=== PATIENT | female | born 1995 | race Caucasian/White ===

== ENCOUNTER 2018-01-22 18:03 | Emergency (ER) | payer BC ==
[2018-01-22 19:18] VITALS: BP 124/76
--- NOTE | 2018-01-22 20:04 | UC ---
Abdominal Pain Female HPI - HPI Summary HPI Summary: 22-year-old female comes into clinic today with a chief complaint of left lower quadrant abdominal pain. Pain started this morning at approximately 6 out of 10. Sometimes she feels lightheaded when she stands up. No fevers or chills. Last period was about a week and a half ago. She is on metronidazole cream for bacterial vaginitis. She had a recent pelvic exam at [facility]. She does have a history of ovarian cyst and she's had laparoscopic surgery for the ovarian cysts. She's had some constipation issues over the last 1 month. She' s been having persistent lower abdominal discomfort on and off for the last several weeks. - History of Current Complaint Chief Complaint: UCAbdominalPain Stated Complaint: ABD PAIN Time Seen by Provider: 01/22/18 19:49 Hx Last Menstrual Period: 01/03/18 Pain Intensity: 7 Allergies/Adverse Reactions: Allergies Allergy/AdvReac Type Severity Reaction Status Date / Time No Known Allergies Allergy Verified 01/22/18 19:18 PMH/Surg Hx/FS Hx/Imm Hx Other History Of: Negative For: Anticoagulant Therapy - Surgical History Surgical History: Yes Surgery Procedure, Year, and Place: drain ovarian cyst 2010 - Family History Known Family History: Positive: None - Social History Alcohol Use: Daily Substance Use Type: None Smoking Status (MU): Never Smoked Tobacco Review of Systems Constitutional: Negative Skin: Negative Eyes: Negative ENT: Negative Respiratory: Negative Cardiovascular: Negative Gastrointestinal: Abdominal Pain Genitourinary: Negative Motor: Negative Neurovascular: Negative Musculoskeletal: Negative Neurological: Negative Psychological: Negative Is Patient Immunocompromised?: No All Other Systems Reviewed And Are Negative: Yes Physical Exam Triage Information Reviewed: Yes Appearance: Ill-Appearing - MILD, Pain Distress - MILD Vital Signs: Initial Vital Signs Temp 97.9 F 01/22/18 19:12 Pulse 59 01/22/18 19:12 Resp 18 01/22/18 19:12 BP 124/76 01/22/18 19:12 Pulse Ox 100 01/22/18 19:12 Vital Signs Reviewed: Yes Eye Exam: Normal Eyes: Positive: Conjunctiva Clear ENT Exam: Normal Neck exam: Normal Neck: Positive: Supple Respiratory Exam: Normal Respiratory: Positive: Lungs clear, Normal breath sounds, No respiratory distress Cardiovascular Exam: Normal Cardiovascular: Positive: RRR Abdomen Description: Positive: CVA Tenderness (L), Guarding, Other: - Tender to palpation left lower quadrant Bowel Sounds: Positive: Present Musculoskeletal Exam: Normal Musculoskeletal: Positive: Strength Intact, ROM Intact Neurological Exam: Normal Neurological: Positive: Alert, Muscle Tone Normal Psychological Exam: Normal Psychological: Positive: Age Appropriate Behavior Skin Exam: Normal Abd Pain Female Course/Dx - Course Course Of Treatment: We discussed the different possibilities for her left lower quadrant abdominal pain. I recommended she go directly to the emergency department for further evaluation of this condition. Her partner is going to give her a ride. - Differential Dx/Diagnosis Provider Diagnoses: LLQ ABDOMINAL PAIN Discharge - Sign-Out/Discharge Documenting (check all that apply): Patient Departure All imaging exams completed and their final reports reviewed: No Studies - Discharge Plan Condition: Stable Disposition: HOME-RECOMMEND TO ED Patient Education Materials: Abdominal Pain (ED) Referrals: Jing Mcdaniel MD [Primary Care Provider] - Additional Instructions: GO DIRECTLY TO THE EMERGENCY DEPARTMENT FOR FURTHER EVALUATION. - Billing Disposition and Condition Condition: STABLE Disposition: Home-Recommend to ED
== END 2018-01-22 20:08 | disposition home health service (06) ==
LOC: UCEAST 18:03
DX: R10.32 Left lower quadrant pain (principal)
CPT/HCPCS: 81003; 84702; 99212; G0463

== ENCOUNTER 2018-01-22 20:24 | Emergency (ER) | payer BC ==
[2018-01-22 20:30] VITALS: BP 130/76
== END 2018-01-22 20:42 | disposition left against medical advice (07) ==
LOC: ED 20:24
DX: R10.9 Unspecified abdominal pain (principal); Z53.21 Procedure and treatment not carried out due to patient leaving prior to being seen by health care provider

== ENCOUNTER 2018-01-23 15:48 | Emergency (ER) | payer BC ==
[2018-01-23 15:54] VITALS: BP 120/72
[2018-01-23 18:30] LABS: ABS Basophils 0 10^3/ul (0-0.2); ABS Eosinophils 0.1 10^3/ul (0-0.6); ABS Lymphocytes 2.1 10^3/ul (1.0-4.8); ABS Monocytes 0.5 10^3/ul (0-0.8); ABS Neutrophils 3.8 10^3/ul (1.5-7.7); ABS Nucleated RBC 0 10^3/ul; Eosinophil % 0.8 % (0-6); Hematocrit 40 % (35-47); Hemoglobin 13.6 g/dl (12.0-16.0); Lymphocyte % 32.8 % (25-47); Mean Corpuscular HGB Conc 34 g/dl (31-36); Mean Corpuscular Hemoglobin 30 pg (27-31); Mean Corpuscular Volume 90 fL (80-97); Mean Platelet Volume 7.5 um3 (7.4-10.4); Nucleated Red Blood Cells % 0.1; Platelet Count 151 10^3/ul (150-450); Red Cell Distribution Width 12 % (10.5-15); White Blood Count 6.5 10^3/ul (3.5-10.8)
[2018-01-23 18:58] LABS: EGFR Non-African American 86.8 (>60)
[2018-01-23 19:22] LABS: Urine Appearance Clear; Urine Blood Negative (Negative); Urine Color Yellow; Urine Ketones Negative (Negative); Urine Protein Negative (Negative); Urine Specific Gravity 1.013 (1.010-1.030); Urine Urobilinogen Negative (Negative)
--- NOTE | 2018-01-23 19:28 | RAD ---
EXAM: US Pelvis, Transvaginal CLINICAL HISTORY: 22 years old, female; Pain; Pelvic pain; Prior surgery; Surgery date: 6+ months; Surgery type: Left ov. Cyst removed; Patient HX: Llq pain x 3 1/2 wks; Additional info: Llq pain, h/o ovarian cysts TECHNIQUE: Real-time transvaginal pelvic ultrasound (complete) with image documentation. Transvaginal imaging was used for better evaluation of the endometrium and adnexa. COMPARISON: PELVIC US PELVIC COMPLETE 06/13/2011 12:58 PM FINDINGS: Uterus/cervix: Anteverted anteflexed. Measures 6.9 x 5.4 x 2.9 cm (56 cc). Cystic mass within the left cornua which contains layering debris and shows no internal vascularity measuring 2.1 x 2.0 x 1.6 cm. Early proliferative phase endometrium measuring 0.2 cm. Right ovary: Right ovary measures 3.2 x 1.8 x 1.1 cm (3.2 cc). Normal size and echogenicity with no masses. Normal follicles. Normal arterial and venous waveforms. Left ovary: Left ovary measures 3.4 x 2.1 x 1.1 cm (4.2 cc). Normal size and echogenicity with no masses. Normal follicles. Normal arterial and venous waveforms. Free fluid: No free fluid. Bladder: Empty bladder which cannot be evaluated with this probe. IMPRESSION: Left cornual mass highly concerning for a interstitial ectopic . To contact [facility] with a general question: [facility] - [phone] For direct physician to physician contact: Physician Hotline - [phone] [facility] ([facility] ID #[id number])
--- NOTE | 2018-01-23 21:35 | ED ---
Abdominal Pain/Female - HPI Summary HPI Summary: Patient complains of left lower quadrant abdominal pain intermittently for the past 3 weeks. Describes pain as intermittent, lasting hours each day, rated at worst 8 out of 10, relieved with heat and ibuprofen. States has history of ovarian cysts with prior laparoscopic surgery on left side for for large ovarian cyst. LMP 1.5 weeks ago. Recently started on the OCP 1 week ago. Currently being treated for BV. Denies fever, cough, sore throat, CP, SOB, N/V/ D, change in urine or vaginal symptoms. Medical history is none. - History of Current Complaint Chief Complaint: EDAbdPain Stated Complaint: ABD PAIN Time Seen by Provider: 01/23/18 18:12 Hx Obtained From: Patient Hx Last Menstrual Period: 01/03/18 Onset/Duration: Gradual Onset Timing: Hours Severity Initially: Moderate Severity Currently: Moderate Pain Intensity: 5 Pain Scale Used: 0-10 Numeric Location: Discrete At: LLQ Radiates: No Alleviating Factor(s): OTC Analgesics, Other: Associated Signs and Symptoms: Positive: Negative Allergies/Adverse Reactions: Allergies Allergy/AdvReac Type Severity Reaction Status Date / Time No Known Allergies Allergy Verified 01/22/18 19:18 PMH/Surg Hx/FS Hx/Imm Hx Endocrine/Hematology History: Denies: Hx Anticoagulant Therapy, Hx Diabetes, Hx Thyroid Disease Cardiovascular History: Denies: Hx Cardiac Arrest, Hx Hypertension, Hx Pacemaker/ICD, Hx Peripheral Vascular Disease Respiratory History: Denies: Hx Asthma, Hx Chronic Obstructive Pulmonary Disease (COPD) GI History: Denies: Hx Ulcer History: Denies: Hx Dialysis, Hx Renal Disease Musculoskeletal History: Reports: Other Musculoskeletal History - Right Collar Bone_ Fracture a Month Ago. Still on -Limited Use. Denies: Hx Arthritis, Hx Rheumatoid Arthritis, Hx Osteoporosis Sensory History: Denies: Hx Cataracts, Hx Contacts or Glasses, Hx Glaucoma Opthamlomology History: Denies: Hx Cataracts, Hx Contacts or Glasses, Hx Glaucoma Neurological History: Denies: Hx Dementia, Hx Seizures Psychiatric History: Denies: Hx Anxiety, Hx Depression, Hx Substance Abuse - Surgical History Surgery Procedure, Year, and Place: drain ovarian cyst 2010 - Immunization History Date of Influenza Vaccine: N Infectious Disease History: No Infectious Disease History: Denies: Hx Clostridium Difficile, Hx Hepatitis, Hx Human Immunodeficiency Virus (HIV), Hx of Known/Suspected MRSA, Hx Tuberculosis, Hx Known/Suspected VRE , Hx Known/Suspected VRSA, History Other Infectious Disease, Traveled Outside the [place] in Last 30 Days - Family History Known Family History: Positive: None - Social History Alcohol Use: Daily Substance Use Type: Reports: None Smoking Status (MU): Never Smoked Tobacco Review of Systems Constitutional: Negative Eyes: Negative ENT: Negative Cardiovascular: Negative Respiratory: Negative Positive: Abdominal Pain Genitourinary: Negative Musculoskeletal: Negative Skin: Negative Neurological: Negative Psychological: Normal All Other Systems Reviewed And Are Negative: Yes Physical Exam - Summary Physical Exam Summary: Tenderness to palpation left lower quadrant. Abdominal exam otherwise unremarkable. Triage Information Reviewed: Yes Vital Signs On Initial Exam: Initial Vitals Temp Pulse Resp BP Pulse Ox 97.6 F 66 16 120/72 100 01/23/18 15:52 01/23/18 15:52 01/23/18 15:52 01/23/18 15:52 01/23/18 15:52 Vital Signs Reviewed: Yes Appearance: Positive: Well-Appearing Skin: Positive: Warm Head/Face: Positive: Normal Head/Face Inspection Eyes: Positive: Normal Neck: Positive: Supple Respiratory/Lung Sounds: Positive: Clear to Auscultation Cardiovascular: Positive: Normal Abdomen Description: Positive: Other: Musculoskeletal: Positive: Normal Neurological: Positive: Normal Psychiatric: Positive: Normal AVPU Assessment: Alert - [place] Coma Scale Best Eye Response: 4 - Spontaneous Best Motor Response: 6 - Obeys Commands Best Verbal Response: 5 - Oriented Coma Scale Total: 15 Diagnostics - Vital Signs Vital Signs Temp Pulse Resp BP Pulse Ox 01/23/18 15:52 97.6 F 66 16 120/72 100 - Laboratory Lab Results: Lab Results 01/23/18 01/23/18 01/23/18 Range/Units 18:05 18:05 19:15 WBC 6.5 (3.5-10.8) 10^3/ul RBC 4.50 (4.00-5.40) 10^6/ul Hgb 13.6 (12.0-16.0) g/dl Hct 40 (35-47) % MCV 90 (80-97) fL MCH 30 (27-31) pg MCHC 34 (31-36) g/dl RDW 12 (10.5-15) % Plt Count 151 (150-450) 10^3/ul MPV 7.5 (7.4-10.4) um3 Neut % (Auto) 58.7 (38-83) % Lymph % (Auto) 32.8 (25-47) % [place] % (Auto) 7.5 H (0-7) % Eos % (Auto) 0.8 (0-6) % Baso % (Auto) 0.2 (0-2) % Absolute Neuts (auto) 3.8 (1.5-7.7) 10^3/ul Absolute Lymphs (auto) 2.1 (1.0-4.8) 10^3/ul Absolute Monos (auto) 0.5 (0-0.8) 10^3/ul Absolute Eos (auto) 0.1 (0-0.6) 10^3/ul Absolute Basos (auto) 0 (0-0.2) 10^3/ul Absolute Nucleated RBC 0 10^3/ul Nucleated RBC % 0.1 Sodium 139 (135-145) mmol/L Potassium 3.5 (3.5-5.0) mmol/L Chloride 106 (101-111) mmol/L Carbon Dioxide 29 (22-32) mmol/L Anion Gap 4 (2-11) mmol/L BUN 13 (6-24) mg/dL Creatinine 0.83 (0.51-0.95) mg/dL Est GFR ( Amer) 105.0 (>60) Est GFR (Non-Af Amer) 86.8 (>60) BUN/Creatinine Ratio 15.7 (8-20) Glucose 91 (70-100) mg/dL Calcium 9.2 (8.6-10.3) mg/dL Total Bilirubin 0.40 (0.2-1.0) mg/dL AST 18 (13-39) U/L ALT 13 (7-52) U/L Alkaline Phosphatase 32 L (34-104) U/L Total Protein 6.8 (6.4-8.9) g/dL Albumin 4.4 (3.2-5.2) g/dL Globulin 2.4 (2-4) g/dL Albumin/Globulin Ratio 1.8 (1-3) Beta HCG, Quant < 0.60 mIU/mL Urine Color Yellow Urine Appearance Clear Urine pH 7.0 (5-9) Ur Specific [place] 1.013 (1.010-1.030) Urine Protein Negative (Negative) Urine Ketones Negative (Negative) Urine Blood Negative (Negative) Urine Nitrate Negative (Negative) Urine Bilirubin Negative (Negative) Urine Urobilinogen Negative (Negative) Ur Leukocyte Esterase Negative (Negative) Urine Glucose Negative (Negative) Urine Ascorbic Acid * A (Negative) Result Diagrams: 01/23/18 18:05 01/23/18 18:05 Lab Statement: Any lab studies that have been ordered have been reviewed, and results considered in the medical decision making process. Abdominal Pain Fem Course/Dx - Course Course Of Treatment: Patient complains of left lower quadrant abdominal pain intermittently for the past 3 weeks. Describes pain as intermittent, lasting hours each day, rated at worst 8 out of 10, relieved with heat and ibuprofen. States has history of ovarian cysts with prior laparoscopic surgery on left side for for large ovarian cyst. LMP 1.5 weeks ago. Recently started on the OCP 1 week ago. Currently being treated for BV. Denies fever, cough, sore throat, CP, SOB, N/V/D, change in urine or vaginal symptoms. Medical history is none. Physical exam: Tenderness to palpation left lower quadrant. Abdominal exam otherwise unremarkable. Vital signs within normal limits. Labs unremarkable. Transvaginal ultrasound read possible ectopic. Negative hCG however. Discussed patient with Dr. Cornejo consumer affairs specialist for gynecology who stated this could not be ectopic. Vital signs within normal limits. Ibuprofen for pain. Patient will follow up with HEALTH INFORMATION MANAGER. - Diagnoses Provider Diagnoses: Abdominal pain Discharge - Sign-Out/Discharge Documenting (check all that apply): Patient Departure - Discharge Plan Condition: Stable Disposition: HOME Prescriptions: HYDROcodone/ACETAMIN 5-325 MG* [[place] 5-325 TAB*] 1 tab PO BID 3 Days #6 tab MDD 2 tabs Patient Education Materials: Abdominal Pain (ED) Referrals: Jing Mcdaniel MD [Primary Care Provider] - Jesus Alberto Cornejo MD [Medical Doctor] - Additional Instructions: Take ibuprofen 600mg up to three times a day for pain. Follow up with HEALTH INFORMATION MANAGER. Return to the ED for any new or worsening symptoms - Billing Disposition and Condition Condition: STABLE Disposition: Home
[2018-01-23] MEDS ORDERED: Ibuprofen TAB* 600 MG PO ONE (21:36)
[2018-01-23] MEDS ORDERED: HYDROcodone/ACETAMIN 5-325 MG* 1 TAB PO ONE (21:46)
== END 2018-01-23 21:53 | disposition home or self-care (01) ==
LOC: ED 15:48
DX: R10.32 Left lower quadrant pain (principal); Z79.899 Other long term (current) drug therapy
CPT/HCPCS: 36415; 76830; 80053; 81003; 84702; 85025; 99282; A9270-GY

== ENCOUNTER 2021-04-20 12:19 | Inpatient (IN) ==
[2021-04-20 13:28] LABS: ABS Lymphocytes 1.3 10^3/ul (1.0-4.8); ABS Monocytes 0.3 10^3/ul (0-0.8); ABS Neutrophils 4.2 10^3/ul (1.5-7.7); Eosinophil % 0.6 %; Hematocrit 44 % (35-47); Hemoglobin 14.8 g/dL (12.0-16.0); Lymphocyte % 21.3 %; Mean Corpuscular HGB Conc 33 g/dL (31-36); Mean Corpuscular Hemoglobin 31 pg (27-31); Mean Corpuscular Volume 92 fL (80-97); Mean Platelet Volume 7.4 fL (7.4-10.4); Nucleated Red Blood Cells % 0.1; Platelet Count 170 10^3/uL (150-450); Red Blood Count 4.84 10^6 /uL (3.70-4.87); Red Cell Distribution Width 12 % (10-15); White Blood Count 5.9 10^3/uL (3.5-10.8)
[2021-04-20 13:46] LABS: ALT 14 U/L (7-52); AST 17 U/L (13-39); Albumin 4.6 g/dL (3.2-5.2); Albumin/Globulin Ratio 1.5 (1-3); Alkaline Phosphatase 46 U/L (35-149); Anion Gap 6 mmol/L (2-11); Blood Urea Nitrogen 12 mg/dL (6-24); CO2 Carbon Dioxide 24 mmol/L (22-32); Calcium 9.8 mg/dL (8.6-10.3); Chloride 105 mmol/L (101-111); Glucose 96 mg/dL (70-100); Potassium 3.9 mmol/L (3.5-5.0); Sodium 135 mmol/L (135-145); Total Protein 7.6 g/dL (6.4-8.9); eGFR CKD-EPI 92.8 (>60)
[2021-04-20 14:09] LABS: Acetaminophen < 15 mcg/mL; Alcohol, S < 13 mg/dL (<13); Salicylate < 2.50 mg/dL (<30)
[2021-04-20] MEDS ORDERED: Al Hydrox/Mg Hydrox/Simet LIQ 30 ML UDC PO PRN (14:10)
[2021-04-20 14:19] LABS: TSH Ultra Thyroid Stim Horm 0.98 mcIU/mL (0.34-5.60)
[2021-04-20 17:07] LABS: Urine Appearance Cloudy; Urine Bilirubin Negative (Negative); Urine Blood Negative (Negative); Urine Color Yellow; Urine Glucose Negative (Negative); Urine Ketones Negative (Negative); Urine Nitrite Negative (Negative); Urine Protein Negative (Negative); Urine Specific Gravity 1.008 (1.002-1.030); Urine Urobilinogen Negative (Negative)
[2021-04-20 17:10] LABS: Urine Bacteria Absent (Absent); Urine Red Blood Cell Trace(0-2/hpf) (Absent); Urine Squamous Epithelial Cell Present (Absent); Urine White Blood Cell Trace(0-5/hpf) (Absent)
[2021-04-20 17:22] LABS: Urine Benzodiazepine Screen None Detected (None Detect); Urine Cannabinoids Screen None Detected (None Detect); Urine Opiates Screen None Detected (None Detect)
[2021-04-21] MEDS: ETHINYL ESTRAD PO SCH (14:37)
[2021-04-21] MEDS: buPROPion SR 100 mg TAB.SR PO SCH (14:37)
[2021-04-21] MEDS: DESOG PO SCH (14:37)
[2021-04-22] MEDS: buPROPion SR 100 mg TAB.SR PO SCH (09:01)
[2021-04-22] MEDS: DESOG PO SCH (09:01)
[2021-04-22] MEDS: ETHINYL ESTRAD PO SCH (09:01)
[2021-04-22 09:03] VITALS: BP 100/68
== END 2021-04-22 17:15 | disposition home or self-care (01) | DRG 751 ==
LOC: ED 12:19 → EDHOLD 14:10 → BSU 16:50
PROVIDERS: ADMIT Student in an Organized Health Care Education/Training Program; ATTEND Student in an Organized Health Care Education/Training Program